=== PATIENT | female | born 1955 | race Asian ===

== ENCOUNTER 2016-04-16 15:19 | Emergency (ER) | payer OTHER ==
[~2016-04-16] VITALS: Ht 172.7 cm; Wt 79.4 kg
[2016-04-16 15:40] VITALS: BP 147/68
[2016-04-16] MEDS ORDERED: BACLOFEN10 MG ORAL (15:45)
[2016-04-16] MEDS ORDERED: Ketorolac 30mg Inj IV ONE (15:45)
[2016-04-16] MEDS ORDERED: ATORVASTATIN CA20 MG ORAL (15:45)
[2016-04-16] MEDS ORDERED: LOSARTAN POTASS50 MG ORAL (15:45)
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
--- NOTE | 2016-04-16 16:51 | Diagnostic Imaging Report ---
Indication: Head trauma Technique: Contiguous 5 mm thick transaxial imaging of the head obtained in a Siemens Sensation [address] scanner. Soft tissue and bone windows generated. Total Dose length Product (DLP): [address] Dose Index Volume (CTDIvol): 70.38 mGy Comparison: none Findings: The size and configuration of the cortical sulci, basal cisterns, and ventricles are within normal limits for age. There is no mass effect, midline shift, or edema identified. There is no evidence of acute hemorrhage or abnormal intra-axial or extra-axial fluid collections. The bones and soft tissues are unremarkable. Impression: No mass effect, edema or acute bleed. The CT scanner at [facility] is accredited by the [employer] and the scans are performed using protocols designed to limit radiation exposure to as low as reasonably achievable to attain images of sufficient resolution adequate for diagnostic evaluation.
--- NOTE | 2016-04-16 16:51 | Diagnostic Imaging Report ---
Indication: Neck pain. Technique: Continuous helical imaging of the cervical spine was obtained transaxially from the skull base to the upper thoracic spine. 2-D coronal and sagittal reformatted images were obtained. Total Dose length Product (DLP): [address] Dose Index Volume (CTDIvol): 21 mGy Comparison: None Findings: There is no acute fracture or malalignment identified. There is no soft tissue swelling identified. Mild uncovertebral arthritis is demonstrated at multiple levels. Some of the intervertebral discs show mild narrowing. Impression: No acute injury Mild spondylosis The CT scanner at [facility] is accredited by the [employer] and the scans are performed using protocols designed to limit radiation exposure to as low as reasonably achievable to attain images of sufficient resolution adequate for diagnostic evaluation.
[2016-04-16] MEDS ORDERED: ZOFRAN ODT4 MG ORAL (17:10)
[2016-04-16] MEDS ORDERED: IBUPROFEN600 MG ORAL (17:10)
[2016-04-16] MEDS ORDERED: TRAMADOL HCL50 MG ORAL (17:10)
[2016-04-16 17:31] VITALS: BP 145/84
--- NOTE | 2016-04-17 13:50 | Cardiology Report ---
APPROVED REPORT EKG Measurement Heart [id number] [id number] Normal sinus rhythm Voltage criteria for left ventricular hypertrophy Abnormal ECG
== END 2016-04-16 17:31 | disposition home or self-care (01) ==
LOC: EMR 17:05
DX: S06.0X0A Concussion without loss of consciousness, initial encounter (principal); S00.03XA Contusion of scalp, initial encounter; V43.52XA Car driver injured in collision with other type car in traffic accident, initial encounter; Y92.410 Unspecified street and highway as the place of occurrence of the external cause; M47.812 Spondylosis without myelopathy or radiculopathy, cervical region
CPT/HCPCS: 70450; 72125; 93005; 96374; 96375; 99284; J1885; J2405